=== PATIENT | female | born 1965 | race Caucasian/White ===

== ENCOUNTER 2018-04-23 04:56 | Inpatient (IN) ==
[2018-04-21 13:48] LABS: Appearance,Urine CLEAR; Bilirubin,Urine NEG (NEG); Color,Urine STRAW; Glucose,Urine (UA) NEGATIVE (NEG); Leukocyte Esterase,Urine NEG /uL (NEG); Protein,Urine NEG (NEG); Specific Gravity,Urine 1.006 (1.000-1.035); Urine Blood NEG mg/dL (<0.03); Urobilinogen,Urine NEG (NEG)
[2018-04-21 14:34] LABS: Basophils # (Auto) 0 K/mcL (0.0-0.3); Basophils % (Auto) 0.5 % (0.0-2.0); Eosinophils # (Auto) 0.2 K/mcL (0.0-0.7); Eosinophils % (Auto) 2.5 % (0.0-7.0); Lymphocytes % (Auto) 26.5 % (15.5-49.0); Mean Corpuscular HGB Conc 33.3 g/dL (31.0-36.0); Mean Corpuscular Hemoglobin 31.6 pg (26.0-34.0); Monocytes # (Auto) 0.7 K/mcL (0.1-0.9); Monocytes % (Auto) 9.5 % (1.0-12.0); Platelet Count 209 K/mcL (140-440); RBC 4.33 M/mcL (4.00-5.20); Red Cell Distribution Width 13.3 % (11.5-14.5)
[2018-04-21 14:35] LABS: Blood Urea Nitrogen 9 mg/dl (6-20)
[2018-04-23] MEDS ORDERED: SCOPOLAMINE 1 PATCH PATCH TOPICAL ONE ×2 (05:00)
[2018-04-23] MEDS ORDERED: ceFAZolin 1 GM VIAL IV SCH (07:00)
[2018-04-23] MEDS ORDERED: PREGABALIN 75 MG CAPSULE PO SCH (07:00)
[2018-04-23] MEDS ORDERED: oxyCODONE 10 MG TAB.ER.12H PO SCH (07:00)
[2018-04-23] MEDS ORDERED: CELECOXIB 200 MG CAPSULE PO SCH (07:00)
[2018-04-23] MEDS ORDERED: KETAMINE 100 MG/ML ML IV ONE (07:35)
[2018-04-23] MEDS ORDERED: TRANEXAMIC ACID 1,000 MG/10 ML VIAL IV ONE ×2 (07:35→09:19)
[2018-04-23] MEDS ORDERED: LIDOCAINE HCL/PF 100 MG/5 ML SYRINGE IV ONE (07:35)
[2018-04-23] MEDS ORDERED: ONDANSETRON 4 MG/2 ML VIAL IV ONE (07:35)
[2018-04-23] MEDS ORDERED: DEXAMETHASONE 10 MG/ML VIAL IV ONE (07:35)
[2018-04-23] MEDS ORDERED: MIDAZOLAM 2 MG/2 ML VIAL IV ONE (07:35)
[2018-04-23] MEDS ORDERED: ePHEDrine 50 MG/ML AMPUL IV ONE (07:35)
[2018-04-23] MEDS ORDERED: PHENYLEPHRINE 10 MG/ML VIAL IV ONE (07:35)
[2018-04-23] MEDS ORDERED: PROPOFOL 200 MG/20 ML VIAL IV ONE (07:35)
[2018-04-23] MEDS ORDERED: KETOROLAC 30 MG/ML VIAL IV ONE (07:35)
[2018-04-23] MEDS ORDERED: PROMETHAZINE 25 MG/ML VIAL IV ONE (07:35)
[2018-04-23] MEDS ORDERED: FAMOTIDINE/PF 20 MG/2 ML VIAL IV ONE (07:35)
[2018-04-23] MEDS ORDERED: GLYCOPYRROLATE 0.2 MG/ML VIAL IV ONE (07:35)
[2018-04-23] MEDS ORDERED: HEPARIN 20,000 UNIT/ML VIAL IR ONE (08:15)
[2018-04-23] MEDS ORDERED: HEPARIN 10,000 UNIT/ML VIAL IR ONE (08:15)
[2018-04-23] MEDS ORDERED: fentaNYL 100 MCG/2 ML VIAL IV PRN (08:42)
[2018-04-23] MEDS ORDERED: MEPERIDINE 25 MG/ML SYRINGE IV PRN (08:42)
[2018-04-23] MEDS ORDERED: METHOCARBAMOL 1,000 MG/10 ML VIAL IV PRN (08:42)
[2018-04-23] MEDS ORDERED: BENZOCAINE/MENTHOL 1 LOZENGE PO PRN ×2 (08:42→09:19)
[2018-04-23] MEDS ORDERED: ONDANSETRON 4 MG/2 ML VIAL IV PRN ×2 (08:42→09:19)
[2018-04-23] MEDS ORDERED: LACTATED RINGERS 250 ML IV PRN (08:42)
[2018-04-23] MEDS ORDERED: FLUMAZENIL 0.1 MG/ML ML IV PRN (08:42)
[2018-04-23] MEDS ORDERED: ACETAMINOPHEN 1,000 MG/100 ML BOTTLE IV ONE (08:42)
[2018-04-23] MEDS ORDERED: NALOXONE HCL 0.4 MG/ML VIAL IV PRN (08:42)
[2018-04-23] MEDS ORDERED: IPRATROPIUM/ALBUTEROL 3 ML AMPUL.NEB NEB PRN (08:42)
[2018-04-23] MEDS ORDERED: LACTATED RINGERS 1,000 ML IV SCH (08:45)
--- NOTE | 2018-04-23 09:18 | Brief Operative Note ---
Date of procedure: 04/23/18 Pre-op diagnosis: Left hip severe DJD Post-op diagnosis: same Procedure: Left anterior total hip arthroplasty Grafts/Implants: Yes (Depuy Actis std 6 stem, +1.5 36 delta head, 54 cup, neutral altrx liner) Anesthesia: spinal, GLMA Findings: arthritis Complications: none Surgeon: Hema Rivera Dry Room Attendant: Shane Meehan Estimated blood loss (cc): 200 Specimens Removed/Pathology: none sent Condition: stable Disposition: PACU
[2018-04-23] MEDS ORDERED: BISACODYL 10 MG SUPP.RECT PR PRN (09:19)
[2018-04-23] MEDS ORDERED: FLEETS ADULT ENEMA PR PRN (09:19)
[2018-04-23] MEDS ORDERED: POLYETHYLENE GLYCOL 3350 17 GM PACKET PO PRN (09:19)
[2018-04-23] MEDS ORDERED: MAGNESIUM HYDROXIDE 30 ML ORAL.SUSP PO PRN (09:19)
--- NOTE | 2018-04-23 09:59 | Operative Note ---
DATE OF OPERATION: 04/23/2018 PREOPERATIVE DIAGNOSIS: Left hip severe osteoarthritis. POSTOPERATIVE DIAGNOSIS: Left hip severe osteoarthritis. PROCEDURE PERFORMED: Left anterior total hip arthroplasty using a DePuy Actis size 6 standard offset femoral stem; a +1.5, 36 mm delta ceramic head ball; a 54 Ramsay cup with a neutral AltrX liner. SURGEON: Hema Rivera M.D. HOLLOW TILE PARTITION ERECTOR: Nuzhat Becker M.D. SECOND HOLLOW TILE PARTITION ERECTOR: Basim Meehan PA-C. ANESTHESIA: Spinal plus general. DRAINS: None. SPECIMENS: Femoral head and reamings which were discarded. BLOOD LOSS: 200 mL. COMPLICATIONS: None. POSTOPERATIVE CONDITION: Stable. INDICATION FOR SURGERY: This is a 52-year-old female with progressive worsening, longstanding left hip pain. Radiographs showed severe [id number] arthritis. FINDINGS AT SURGERY: As above. Post implantation showed good component position with leg length and offset bahai. PROCEDURE IN DETAIL: The patient had been seen preoperatively. Informed consent had been obtained after discussion of risks and benefits of surgery. Risks including, but not limited to, bleeding, possibly requiring transfusion; infection, possibly requiring implant removal and prolonged IV antibiotics; injury to nerves, blood vessels and other surrounding structures; at particular risk, the lateral femoral cutaneous nerve with possible numbness over the lateral thigh; anesthetic risks; incomplete or no resolution of symptoms; leg length discrepancy; dislocation; fracture; DVT and pulmonary embolus risks; and the possibility of needing further revision surgery. She understood these risks and wished to proceed. Correct operative site was marked and the patient was given spinal anesthesia. She was then taken to the operating room and LMA general given. Left hip and groin were carefully prepped and draped in normal sterile fashion. Time out was performed verifying patient name, operative site, and plan. Standard anterior approach incision was made with a scalpel through skin and subcutaneous tissue and then hemostasis obtained with Bovie cautery. We continued Bovie dissecting down to the tensor fascia. We then bluntly dissected circumferentially and then irrigated Irrisept. A ring retractor was placed. Tensor fascia was incised in line with muscle fibers and then careful blunt dissection taken medial. Blunt cobra retractors placed on the superior and inferior neck. Circumflex vessels were coagulated and cut and vastus fascia split distally. Anterior capsulectomy was performed and capsule releases taken down to the lesser and out towards the greater trochanters. Corkscrew was placed in the femoral head. Osteotome was used under fluoro to identify our approximate neck cut trajectory. We then used the oscillating tip saw to make our neck cut. The head was removed and then the acetabulum was exposed. Labrum was removed circumferentially as well as soft tissue from the floor. We started with the reamer directly medial to the tear drop and then increased size and angle until a 53 reamer got rim ream. We opened a 54 three-hole Ramsay cup. Acetabulum was irrigated with Irrisept, after a minute pulse lavaged with saline, and then used the [id number] to impact the cup at approximately 40 degrees of inclination and 25 degrees of anteversion. We got good press-fit, so we went and placed a center-hole cover and a neutral AltrX liner. Osteotome was used to remove some anterior osteophyte. We then exposed the proximal femur with external rotation, extension, and adduction. Capsule release was taken around the posterior neck and out towards the greater trochanter. Box osteotome and awl were used to enter the canal and then a rongeur and rasp to lateralize. The [id number] was used to broach up to a size 6. We trialed initially with a high offset 1.5 head. The offset appeared to be too great so we went ahead and opened a size 6 standard offset. We irrigated the femoral canal with Irrisept, after a minute pulse lavaged. The stem was impacted down and a +1.5 head ball was impacted on the stem after carefully cleaning and drying the trunnion. Once head ball was impacted, the hip was reduced without excessive tension. AP of the nonoperative and operative hips were overlaid and verified equalization of leg lengths and offset. Those were saved and printed. We irrigated Irrisept one more time, after a minute pulse lavaged, and then #1 Vicryl running stitches, one running proximal, one running distal were used to close the tensor fascia. Final Irrisept irrigation was done after the ring retractor was removed, after a minute pulse lavaged, and then fat was tacked to fascia with Vicryl and then 2-0 Monocryl for subcutaneous and azalia for skin. Xeroform and sterile dressing were applied. The patient was awakened, extubated, and transferred to recovery in stable condition. [email or web address]:[email or web address] Job ID: [id number] Doc ID: [id number] Hema Rivera MD
--- NOTE | 2018-04-23 10:14 | XRay Report ---
CLINICAL INFORMATION: Post-Op Total Hip COMPARISON: None. FINDINGS: [Total left hip prostheses is anatomically aligned. No osseous abnormality. Both SI and right hip joints show minimal degeneration. Soft tissues normal. IMPRESSION: Negative Interpreted and Authenticated by: Dao Bowers 04/23/18
[2018-04-23] MEDS ORDERED: LORazepam 2 MG/ML VIAL IV ONE (10:15)
[2018-04-23] MEDS ORDERED: LORazepam 2 MG/ML VIAL ONE (10:25)
[2018-04-23] MEDS: HYDROmorphone 2 MG/ML VIAL IV PRN ×4 (11:06→23:26)
[2018-04-23] MEDS: 0.9 % SODIUM CHLORIDE 1,000 ML IV SCH ×2 (11:07→21:10)
[2018-04-23] MEDS: 0.9 % SODIUM CHLORIDE 10 ML SYRINGE IV SCH (13:47)
[2018-04-23] MEDS: ceFAZolin 1 GM VIAL IV SCH (15:59)
[2018-04-23] MEDS: KETOROLAC 30 MG/ML VIAL IV PRN ×2 (16:00→20:32)
[2018-04-23] MEDS: oxyCODONE/APAP 5/325MG TABLET PO PRN ×2 (16:00→20:31)
--- NOTE | 2018-04-23 19:22 | XRay Report ---
CLINICAL INFORMATION: ITS.REASON: LEFT TOTAL HIP ARTHROPLASTY COMPARISON: None. FINDINGS: Multiple digital images from the operating room show placement of left total hip prostheses in different stages. Final film shows left total hip prostheses in anatomic position. No osseous abnormality IMPRESSION: Negative Interpreted and Authenticated by: Dao Bowers 04/23/18
[2018-04-23] MEDS: ASPIRIN 325 MG ENTERIC COATED TABLET PO SCH (20:34)
[2018-04-23] MEDS: DOCUSATE SODIUM 100 MG CAPSULE PO SCH (20:34)
[2018-04-23] MEDS ORDERED: SENNOSIDES 1 TABLET PO SCH (21:00)
[2018-04-23] MEDS ORDERED: METOPROLOL TARTRATE 25 MG TABLET PO SCH (21:00)
[2018-04-24] MEDS: 0.9 % SODIUM CHLORIDE 10 ML SYRINGE IV SCH ×2 (01:19→05:30)
[2018-04-24] MEDS ORDERED: ceFAZolin 1 GM VIAL ONE (01:19)
[2018-04-24] MEDS: oxyCODONE/APAP 5/325MG TABLET PO PRN ×3 (01:26→09:25)
[2018-04-24] MEDS: ceFAZolin 1 GM VIAL IV SCH (01:28)
[2018-04-24] MEDS: HYDROmorphone 2 MG/ML VIAL IV PRN (03:38)
[2018-04-24] MEDS: 0.9 % SODIUM CHLORIDE 1,000 ML IV SCH (05:29)
--- NOTE | 2018-04-24 07:51 | Discharge Summary ---
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 Chief Complaint: [] Discharge date: 04/24/18 Hospitalization Hospital course: Pt was admitted for a MIKE. Pt underwent the procedure on the day of admission. Pt spent one night on the floor for IV pain meds, IV abx, and PT. Pt will attend out-pt PT, and f/u in 2 weeks. Will use ASA for DVT prophylaxis. Discharge diagnosis: L Hip OA Exam - Exam Clean and dry: Yes Weight bearing status: as tolerated Ortho Discharge - MIKE - Patient Instructions Diet: Regular Diet Activity: activity as tolerated Total Hip Protocol: Follow activity instructions as provided by Physical Therapy. Dressing Care: May shower in 2 days - Follow Up Plan Disposition: Home, Self-Care Prognosis: Good Rehab Potential: Good Overall status at discharge: patient is progressing back to baseline - Orders For Discharge Prescriptions: Aspirin [Ecotrin] 325 mg PO BID #60 tab.ec HYDROcodone/APAP 10/325MG [[place] 10-325Mg] 1 - 2 tab PO Q4H PRN #75 tab PRN Reason: Pain Pending Studies Resuscitation Status Full Code Diet Consistent Carbohydrate Diet Start SatApr 23 920 Aspirin (Ecotrin) 325 mg PO BID [facility] Last Admin: 04/23/18 20:34 Dose: 325 mg Docusate Sodium (Colace) 100 mg PO BID [facility] Last Admin: 04/23/18 20:34 Dose: 100 mg Hydromorphone HCl (Dilaudid) 0 mg IV Q2HP PRN PRN Reason: PAIN LEVEL > 6 Last Admin: 04/24/18 03:38 Dose: 2 mg Admin: 04/23/18 23:26 Dose: 2 mg Admin: 04/23/18 18:44 Dose: 1 mg Admin: 04/23/18 13:32 Dose: 1 mg Admin: 04/23/18 11:06 Dose: 1 mg Sodium Chloride (Sodium Chloride 0.9%) 1,000 mls @ 100 mls/hr IV .Q10H [facility] Last Admin: 04/24/18 05:29 Dose: Not Given Admin: 04/23/18 21:10 Dose: 100 mls/hr Infusion: 04/23/18 21:07 Dose: 100 mls/hr Admin: 04/23/18 11:07 Dose: 100 mls/hr Ketorolac Tromethamine (Toradol) 30 mg IV Q6HP PRN PRN Reason: Pain Stop: 04/25/18 09:22 Last Admin: 04/23/18 20:32 Dose: 30 mg Admin: 04/23/18 16:00 Dose: 30 mg Metoprolol Tartrate (Lopressor) 25 mg PO BID [facility] Last Admin: 04/23/18 20:34 Dose: 25 mg Ondansetron HCl (Zofran) 4 mg IV Q4HP PRN PRN Reason: Nausea And Vomiting Last Admin: 04/23/18 16:26 Dose: 4 mg Oxycodone/Acetaminophen (Percocet 5-325 Mg) 0 tab PO Q4HP PRN PRN Reason: PAIN LEVEL 3-6 Last Admin: 04/24/18 04:20 Dose: 2 tab Admin: 04/24/18 01:26 Dose: 2 tab Admin: 04/23/18 20:31 Dose: 2 tab Admin: 04/23/18 16:00 Dose: 2 tab Senna (Senokot) 2 tab PO HS [facility] Last Admin: 04/23/18 20:34 Dose: 2 tab Sodium Chloride (Saline Flush) 10 ml IV Q8 [facility] Last Admin: 04/24/18 05:30 Dose: Not Given Admin: 04/24/18 01:19 Dose: Not Given Admin: 04/23/18 13:47 Dose: Not Given Shift Summary 04/24/18 05:14 Shift Summary by Mono Martinez Pt up to BSC with FWW and 1 assist x2. Has had no nausea some dizziness earily th shift Percocet x3, Toradol x1, and Dilaudid x3. Voiding adequate amounts. Has CPAP at bedside. IVF TKO may DC, Ice to left hip, AV boots on. Initialized on 04/24/18 05:14 - END OF NOTE
[2018-04-24] MEDS ORDERED: DILTIAZEM 180 MG CAP.XL.24H PO SCH (09:00)
[2018-04-24] MEDS: ASPIRIN 325 MG ENTERIC COATED TABLET PO SCH (09:25)
[2018-04-24] MEDS: DOCUSATE SODIUM 100 MG CAPSULE PO SCH (09:25)
== END 2018-04-24 10:55 | disposition home or self-care (01) | DRG 470 ==
LOC: MEDSUR 04:56
PROVIDERS: ADMIT Orthopaedic Surgery; ATTEND Orthopaedic Surgery